=== PATIENT | male | born 1965 | race Caucasian/White ===

== ENCOUNTER 2025-06-14 23:42 | Emergency (ER) | payer MEDICAID ==
[~2025-06-14] VITALS: Ht 180.3 cm; Wt 89.5 kg
[~2025-06-14 23:42] MED LIST: BISM262O28 PO
[2025-06-14 23:50] VITALS: TEMP 98.7
[2025-06-15 01:11] LABS: COVID AG,FIA SOURCE NASAL SWAB
[2025-06-15 01:33] LABS: INFLUENZA TYPE B NEGATIVE FOR TYPE B (NEGATIVE)
[2025-06-15 01:35] LABS: SARS-COV2 (COVID) ANTIGEN,FIA Negative (Negative)
[2025-06-15 01:43] LABS: INFLUENZA TYPE A POSITIVE FOR TYPE A (NEGATIVE)
[2025-06-15] MEDS ORDERED: ONDA-104 PO (01:45)
[2025-06-15 01:47] VITALS: BP 126/77; PULSE 81; RESP 18; O2SAT 96
== END 2025-06-15 02:01 | disposition home or self-care (01) ==
LOC: EMS 23:55
DX: R55 Syncope and collapse (principal); J10.1 Influenza due to other identified influenza virus with other respiratory manifestations; J10.2 Influenza due to other identified influenza virus with gastrointestinal manifestations; Z98.890 Other specified postprocedural states; Z20.822 Contact with and (suspected) exposure to COVID-19; Z79.899 Other long term (current) drug therapy; W10.9XXA Fall (on) (from) unspecified stairs and steps, initial encounter
CPT/HCPCS: 87804; 93005; 99284; Z7502